=== PATIENT | female | born 1965 | race Caucasian/White ===

== ENCOUNTER 2016-07-30 20:11 | Emergency (ER) | payer OTHER ==
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
--- NOTE | ~2016-07-30 | EKG ---
PATIENT: DEXTER KEEN UNIT #: [id number] Ventricular Rate: 75 BPM Atrial Rate: 75 BPM P-R Interval: 160 ms QRS Duration: 80 ms Q-T Interval: 378 ms QTC Calculation(Bezet): 422 ms P Pinole: 36 degrees Calculated R Pinole: -11 degrees Calculated T Pinole: 11 degrees Diagnosis Line: Normal sinus rhythm Diagnosis Line: Normal ECG Diagnosis Line: When compared with ECG of 13-JAN-2016 09:17, Diagnosis Line: Nonspecific T wave abnormality now evident in Diagnosis Line: Anterior leads Diagnosis Line: Confirmed by TOMASZ POLANCO MD ([id number]) on 08/02/2016 Diagnosis Line: 5:35:37 PM INTERPRETING MD: COLLIN MEJIA
[2016-07-30 20:09] LABS: BASOPHIL% 0.4 % (0-2.5); EOSINOPHIL# 0.3 X10e3 (0-0.7); HEMATOCRIT 33.2 % (35.0-45.0); HEMOGLOBIN 11.3 gm/dL (12.0-16.0); LYMPHOCYTE# 2.5 X10e3 (1.0-3.5); MEAN CELL VOLUME 91.5 FL (83-96); MEAN CORPUSCULAR HEMOGLOBIN 31.1 PG (28-34); MEAN CORPUSCULAR HGB CONC 34.1 g/dL (30-36); MEAN PLATELET VOLUME 7.4 FL (6.5-11.5); MONOCYTE# 0.7 X10e3 (0-1.0); MONOCYTE% 9.4 % (3.0-12.0); NEUTROPHIL# 3.7 X10e3 (1.5-7.1); NEUTROPHIL% 51.2 % (40-75); PLATELET COUNT 192 X10e3 (140-420); RED BLOOD COUNT 3.63 X10e (3.90-5.30); RED CELL DISTRIBUTION WIDTH 12.8 % (11.0-15.5); WHITE BLOOD COUNT 7.2 X10e3 (4.0-10.5)
[2016-07-30 20:10] LABS: DIFF IND NO
[~2016-07-30 20:11] MED LIST: ALLEGRA180 MG PO; AMITRYPTYLINE PO; AMOXICILLIN PO; CELEBREX PO; CELEBREX100 MG PO; CELEXA PO; COLACE PO; CYMBALTA PO; FLEXERIL PO; FLONASE16 GM; GABAPENTIN300 M1 PO; GABAPENTIN600 MG PO; GEODON60 MG PO; GLYCOLAX; LAMICTAL PO; LEVAQUIN PO; LIPITOR PO; LORTAB 7.5-5001 TAB PO; NORCO 10/325 TA1 TAB PO; OYSTER CALCIUM500 MG PO; PHENERGAN PO; PHENERGAN25 MG; PRILOSEC PO; PRINIVIL5 MG PO; PROZAC40 MG PO; ROBAXIN PO; SEROQUEL PO; SINGULAIR PO; SLEEP MED; ZOLOFT100 MG PO
[2016-07-30 20:23] LABS: URINE SOURCE CLEAN CATCH
[2016-07-30 20:25] LABS: URINE APPEARANCE HAZY; URINE BILIRUBIN NEG (NEG); URINE BLOOD TRACE-INTACT (NEG); URINE COLOR YELLOW; URINE GLUCOSE NEG (NORM); URINE KETONE TRACE (NEG); URINE LEUKOCYTE ESTERASE 3+ (NEG); URINE NITRATE NEG (NEG); URINE PROTEIN NEG (NEG); URINE SPECIFIC GRAVITY 1.025 (1.003-1.035); URINE UROBILINOGEN 0.2 MG/DL (NORM)
[2016-07-30 20:26] LABS: MICRO INDICATED? YES
[2016-07-30 20:28] LABS: ALBUMIN SERUM 3.5 g/dL (3.5-5.0); ALKALINE PHOSPHATASE 104 U/L (32-92); ALT (SGPT) 44 U/L (10-40); AMYLASE 38 U/L (0-46); AST (SGOT) 80 U/L (10-42); BILIRUBIN, DIRECT 0.1 mg/dL (0.0-0.2); BILIRUBIN,INDIRECT 0.3 mg/dL (0.0-0.9); BILIRUBIN,TOTAL 0.4 mg/dL (0.2-2.0); BLOOD UREA NITROGEN 10 mg/dL (9-23); CALCIUM SERUM 8.9 mg/dL (8.4-10.2); CARBON DIOXIDE 26 mmol/L (22-31); CHLORIDE 104 mmol/L (100-111); CREATININE SERUM 0.8 mg/dL (0.6-1.4); GLOM FILT RATE Estimated ABOVE60 mL/min (>60); GLUCOSE FASTING 86 mg/dL (70-110); LIPASE 23 U/L (22-51); POTASSIUM 4.1 mmol/L (3.5-5.1); PROTEIN TOTAL SERUM 6.2 g/dL (6.0-8.3); SODIUM 137 mmol/L (135-145)
[2016-07-30 20:31] LABS: CULTURE INDICATED? YES; URINE BACTERIA 1+ (NEG); URINE SQUAMOUS EPITHELIAL CELL FEW /[HPF]; URINE TRANSITIONAL EPI CELLS FEW /[HPF]; URINE WBC 25-50 /[HPF] (0-5)
[2016-07-30 23:41] LABS: POC - CKMB 1.6 ng/mL (0.0-7.9)
[2016-07-30 23:42] LABS: POC - MYOGLOBIN 48.8 ng/mL (0.0-169.0); POC - TROPONIN <0.05 ng/mL (<=0.05)
== END 2016-07-30 21:39 | disposition home or self-care (01) ==
LOC: SED 20:11
PROVIDERS: Emergency Medicine
DX: S40.011A Contusion of right shoulder, initial encounter (principal); S39.91XA Unspecified injury of abdomen, initial encounter; F17.200 Nicotine dependence, unspecified, uncomplicated; N39.0 Urinary tract infection, site not specified; V89.2XXA Person injured in unspecified motor-vehicle accident, traffic, initial encounter; Y92.410 Unspecified street and highway as the place of occurrence of the external cause
CPT/HCPCS: 36415; 71020; 73030; 80048; 80076; 81003; 82150; 82553; 83690; 83874; 84484; 85025; 87086; 93005; 99283; 99284